=== PATIENT | male | born 2005 | race African-American/Black ===

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

== ENCOUNTER 2025-02-25 12:54 | Emergency (ER) | payer MEDICAID ==
[~2025-02-25] VITALS: Ht 180.3 cm; Wt 71.6 kg
[2025-02-25 12:55] VITALS: O2SAT 99
[2025-02-25 13:08] VITALS: BP 110/53; PULSE 63; RESP 17; TEMP 36.5; O2SAT 98
== END 2025-02-25 13:59 | disposition home or self-care (01) ==
LOC: ER 12:54
DX: Z11.52 Encounter for screening for COVID-19 (principal); Z20.822 Contact with and (suspected) exposure to COVID-19
CPT/HCPCS: 87426; 99283